=== PATIENT | female | born 1995 | race Hispanic/Latino ===

== ENCOUNTER 2019-04-01 14:44 | Outpatient (CLI) | payer MEDICAID ==
--- NOTE | 2019-04-01 15:38 | ULT ---
Exam: Pelvic ultrasound HISTORY: Pelvic pain/cramping for 2 to 3 weeks. Amenorrhea. COMPARISON: None TECHNIQUE: Multiple grayscale and color Doppler images were obtained in a transabdominal and transvag inal pelvic ultrasound. Spectral analysis of the Doppler waveforms of the ovaries were performed. FINDINGS: CERVIX: Normal in appearance where visualized. UTERUS: Normal in size without focal abnormality. ENDOMETRIAL STRIPE: 3 mm which is within normal limits for a normal menstruating female patient. No f luid or fluid collection is seen in the endometrial canal. No free fluid is present. RIGHT OVARY: Normal flow, without focal mass. LEFT OVARY: Normal flow, without focal mass. IMPRESSION: Normal-appearing uterus and bilateral ovaries.
== END 2019-04-01 14:45 | disposition home or self-care (01) ==
LOC: NAV ULT 14:44
PROVIDERS: ATTEND Nurse Practitioner Family
DX: R10.2 Pelvic and perineal pain (principal)
CPT/HCPCS: 76856